=== PATIENT | female | born 1995 | race Caucasian/White ===

== ENCOUNTER 2018-03-23 05:11 | Emergency (ER) | payer BC ==
[~2018-03-23] VITALS: Ht 172.7 cm; Wt 129.3 kg
[2018-03-23 05:35] VITALS: BP 151/85
[2018-03-23] MEDS ORDERED: IPRATROPIUM BROM 0.5 MG/2.5ML INH SOL NEB ONE (07:00)
[2018-03-23] MEDS ORDERED: ALBUTEROL SULF 2.5 MG/0.5ML(0.5%) NEB SOLN NEB ONE (07:00)
[2018-03-23] MEDS ORDERED: HYDROcodone-ACET 5/325MG TAB PO ONE (07:00)
[2018-03-23] MEDS ORDERED: KETOROLAC TROMETH 60MG/2ML VIAL IM ONE (07:00)
== END 2018-03-23 08:21 | disposition home or self-care (01) ==
LOC: ER 05:14
DX: R07.89 Other chest pain (principal)
CPT/HCPCS: 71046; 81025; 93005; 94640; 96372; 99283; J1885; J7611; J7644